=== PATIENT | female | born 1965 | race Caucasian/White ===

== ENCOUNTER 2016-11-17 13:53 | Emergency (ER) | payer OTHER ==
[~2016-11-17] VITALS: Ht 167.6 cm; Wt 50.1 kg
[~2016-11-17 13:53] MED LIST: ALPRAZOLAM0.25 M2 PO; ASPIRIN325 MG PO; BUPROBAN150 MG PO; BUSPIRONE HCL15 MG PO; CLOPIDOGREL75 MG PO; EXCEDRIN MIGRA1 EAC3 PO; FLUOXETINE HCL20 MG PO; LO-DOSE ASPIRIN81 M1 PO; MULTI-DAY PLUS1 EACH PO; NICORETTE2 M1 BC; NOVAFERRUM 5050 MG PO; OMEPRAZOLE20 MG PO; OMEPRAZOLE40 M1 PO; PEG-3350 WITH4000 ML PO; PROZAC20 MG PO; SLOW RELEASE I142 M1 PO; WELLBUTRIN75 MG PO
[2016-11-17 14:44] LABS: EOSINOPHIL (%) 0.1 % (0-5); HEMATOCRIT 40.3 % (36.0-46.0); IMMATURE GRANULOCYTE (%) 0.5 % (0.0-0.7); IMMATURE GRANULOCYTE COUNT 0.1 K/uL; INSTRUMENT ABS NEUTROPHIL CT 9.8 K/uL; LYMPHOCYTE COUNT 0.5 K/uL (1.0-2.8); MCH 27.7 PG (29.0-34.0); MCV 86.5 FL (83-99); MONOCYTE (%) 0.3 % (3-12); NEUTROPHIL (%) 93.8 % (45-76); NEUTROPHIL COUNT 9.8 K/uL (1.8-6.4); PLATELET COUNT 314 K/uL (156-360); RBC DIS.WIDTH-CV 14.3 % (11.8-14.6); RBC DIS.WIDTH-SD 45.7 % (39-53); RED BLOOD COUNT 4.66 M/uL (3.80-5.20)
[2016-11-17 14:45] LABS: WHITE BLOOD COUNT 10.5 K/uL (4.1-10.2)
[2016-11-17 14:52] LABS: CHLORIDE 108 mEq/L (99-109); POTASSIUM 3.8 mEq/L (3.7-5.4); SODIUM 137 mEq/L (136-147)
[2016-11-17 14:53] LABS: GLUCOSE 180 mg/dL (70-99)
[2016-11-17 14:55] LABS: ANION GAP 9 MEQ/L (2-14)
[2016-11-17 14:57] LABS: GFR ESTIMATE (CALCULATED) > 59 mL/min/
[2016-11-17 14:58] LABS: UREA NITROGEN (BUN) 11 mg/dL (9-23)
[2016-11-17 15:04] LABS: TROP-I INTERPRETATION NEGATIVE; TROPONIN-I < 0.01 ng/mL (0.0-0.30)
[2016-11-17 16:56] VITALS: BP 97/56
== END 2016-11-17 17:07 | disposition left against medical advice (07) ==
LOC: EME 13:53
PROVIDERS: Emergency Medicine
DX: R55 Syncope and collapse (principal); E78.5 Hyperlipidemia, unspecified; F17.200 Nicotine dependence, unspecified, uncomplicated; Z95.828 Presence of other vascular implants and grafts; Z86.73 Personal history of transient ischemic attack (TIA), and cerebral infarction without residual deficits
CPT/HCPCS: 70450; 71010; 80048; 84484; 85025; 93005; 99281; 99285; J2405